=== PATIENT | male | born 1990 | race Caucasian/White ===

== ENCOUNTER 2023-05-08 03:37 | Emergency (ER) | payer SELFPAY ==
[~2023-05-08] VITALS: Ht 193 cm; Wt 90.7 kg
[2023-05-08 03:39] VITALS: O2SAT 98
--- NOTE | 2023-05-08 04:09 | NUR ---
at bedside exam in progress.
--- NOTE | 2023-05-08 04:46 | NUR ---
at bedside updating pt of care plan.
--- NOTE | 2023-05-08 04:48 | NUR ---
Dcd instruction provided to pt. who verbalized understanding.
== END 2023-05-08 04:55 | disposition home or self-care (01) ==
LOC: ER 03:45
DX: F41.9 Anxiety disorder, unspecified (principal)
CPT/HCPCS: A4663